=== PATIENT | female | born 1985 | race Caucasian/White ===

== ENCOUNTER 2021-05-15 06:22 | Emergency (ER) | payer OTHER ==
[~2021-05-15] VITALS: Ht 165.1 cm; Wt 79.4 kg
[2021-05-15] MEDS ORDERED: VALTREX 500 MG500 M1 PO (06:34)
[2021-05-15 06:51] LABS: URINE BILIRUBIN NEGATIVE (Negative); URINE BLOOD NEGATIVE (Negative); URINE CLARITY CLEAR; URINE COLOR YELLOW; URINE GLUCOSE-RANDOM NEGATIVE (Negative); URINE KETONES NEGATIVE (Negative); URINE LEUKOCYTES-REFLEX TRACE (Negative); URINE NITRITE-REFLEX NEGATIVE (Negative); URINE PROTEIN NEGATIVE (Negative); URINE UROBILINOGEN 0.2 E.U./dl (0.2-1.0)
[2021-05-15 07:10] LABS: CASTS None Seen /LPF (None Seen); CRYSTALS None Seen /LPF (None Seen); MUCUS >6 Heavy strn/LPF (None Seen); SQUAMOUS >10 Many /LPF (0-3); URINE RBC 0-2 Rare /HPF (0-2); URINE WBC-REFLEX 6-15 Few /HPF (0-5)
[2021-05-15] MEDS ORDERED: DEXAMETHASONE 44 M1 PO (07:47)
[2021-05-15] MEDS ORDERED: ZOFRAN ODT4 MG DISSOLVE (07:47)
[2021-05-15] MEDS ORDERED: DOXYCYCLINE 10100 MG PO (07:47)
[2021-05-15 08:09] VITALS: BP 115/75
== END 2021-05-15 08:09 | disposition home or self-care (01) ==
LOC: M.ERS 06:22
PROVIDERS: Personal Emergency Response Attendant
DX: U07.1 COVID-19 (principal); R06.02 Shortness of breath; R05 Cough; R11.0 Nausea; Z79.899 Other long term (current) drug therapy